=== PATIENT | male | born 1975 | race Caucasian/White ===

== ENCOUNTER 2025-05-24 18:56 | Outpatient (REF) | payer BC, SELFPAY ==
--- NOTE | 2025-05-24 07:30 | SKI_PTH ---
PATIENT: Jean Bailon LOC: [facility] U#:[id number] AGE/SX: 49/M ROOM: RE05/24/[address]: Ron Wells MD : 1975 BED: DIS: 05/24/2025 SPEC #: [id number] RECD: 05/24/25 19:02 STATUS: JUDITH RELaura #: [id number] WIN: 05/24/25 07:[address]: Ron Wells DEPT: Surgical Specimen RECD BY: Eunice Corrales ENTERED: 05/24/25 19:03 SP TYPE: SKI OTHR DR: Noam Baioln Tissues: 1 - SKIN BIOPSY(SHAVE/PUNCH) Procedures: SKIN LEVEL 4 Comments: [id number]
== END 2025-05-24 18:57 | disposition home or self-care (01) ==
LOC: LBN 18:56
PROVIDERS: PCP Internal Medicine; Visit Provider Otolaryngology
DX: L98.9 Disorder of the skin and subcutaneous tissue, unspecified (principal)
CPT/HCPCS: 88305